=== PATIENT | female | born 1965 | race Caucasian/White ===

== ENCOUNTER → 2021-06-03 | Outpatient (CLI) | payer OTHER ==
[~2021-06-03] MED LIST: LISINOPRIL20 MG PO; PRILOSEC OTC20 MG PO; SPIRIVA RESPIMAT4 GM INH; TUDORZA PRESS400 MCG INH; VENTOLIN HFA 66.7 GM INH
== END ==
LOC: HEART 5 16:40
DX: J44.9 Chronic obstructive pulmonary disease, unspecified (principal)
CPT/HCPCS: 94060; 94729

== ENCOUNTER → 2021-06-16 | Day surgery (SDC) | payer OTHER ==
[~2021-06-16] MED LIST changes: +ANORO ELLIPTA1 EACH INH; +LORAZEPAM0.5 MG PO; +SYMBICORT 160-1 INHA INH
== END | disposition home or self-care (01) ==
LOC: OR 06-15 08:00
DX: C77.1 Secondary and unspecified malignant neoplasm of intrathoracic lymph nodes (principal); C80.1 Malignant (primary) neoplasm, unspecified; R59.0 Localized enlarged lymph nodes; F17.200 Nicotine dependence, unspecified, uncomplicated; I10 Essential (primary) hypertension; Z80.1 Family history of malignant neoplasm of trachea, bronchus and lung; Z20.822 Contact with and (suspected) exposure to COVID-19; Z90.2 Acquired absence of lung [part of]
CPT/HCPCS: J0171; J2370; J2405; J7120